=== PATIENT | female | born 1970 | race Caucasian/White ===

== ENCOUNTER 2019-08-17 21:03 | Emergency (ER) | payer MEDICARE ==
[2019-08-17 21:13] VITALS: PULSE 92
[2019-08-17] MEDS ORDERED: MECLIZINE 12.5 MG TAB PO STA (21:30)
[2019-08-17] MEDS ORDERED: SODIUM CHLORIDE 0.9% 1,000 ML IV STA (21:31)
--- NOTE | 2019-08-17 22:17 | CT ---
EXAMINATION TYPE: CT brain wo con DATE OF EXAM: 08/17/2019 COMPARISON: None HISTORY: Dizziness. CT DLP: 1094.4 mGycm Automated exposure control for dose reduction was used. Multiple axial sections were obtained of the brain without contrast. Ventricles have normal size. There is no mass effect nor midline shift. There is no sign of intracran ial hemorrhage. Calvarium is intact. There is no evidence of cerebral edema. IMPRESSION: Normal unenhanced head CT scan.
[2019-08-17 22:50] LABS: Basophils # (A) 0.2 k/uL (0-0.2); Basophils % (A) 2 %; Eosinophils # (A) 0.3 k/uL (0-0.7); Eosinophils % (A) 4 %; HCT 44.6 % (34.0-46.0); Lymphocytes # (A) 2.6 k/uL (1.0-4.8); Lymphocytes % (A) 35 %; MCH 32.2 pg (25.0-35.0); MCHC 35.9 g/dL (31.0-37.0); MCV 89.7 fL (80.0-100.0); Mean Platelet Volume 8.1; Monocytes # (A) 0.4 k/uL (0-1.0); Monocytes % (A) 5 %; Neutrophils # (A) 3.8 k/uL (1.3-7.7); Neutrophils % (A) 52 %; Platelet Count 269 k/uL (150-450); RBC 4.97 m/uL (3.80-5.40); RDW 12.9 % (11.5-15.5); WBC 7.4 k/uL (3.8-10.6)
[2019-08-17 23:07] LABS: ALT 14 U/L (4-34); AST 27 U/L (14-36); African American GFR (CKD) >90 (>60 ml/min/1.73 sqM); Albumin 3.9 g/dL (3.5-5.0); Alkaline Phosphatase 77 U/L (38-126); Anion Gap 4 mmol/L; Blood Urea Nitrogen 16 mg/dL (7-17); Calcium 9.2 mg/dL (8.4-10.2); Carbon Dioxide 30 mmol/L (22-30); Chloride 104 mmol/L (98-107); Glucose 81 mg/dL (74-99); Non-African American GFR(CKD) >90 (>60 ml/min/1.73 sqM); Sodium 138 mmol/L (137-145); Total Bilirubin 0.4 mg/dL (0.2-1.3); Total Protein 7.1 g/dL (6.3-8.2)
[2019-08-17] MEDS ORDERED: AMOXIC-POT CLAV 875MG STARTER 2 EACH TABLET PO STA (23:15)
[2019-08-17] MEDS ORDERED: AMOXIC-POT CLAV 875-125MG 1 EACH TAB PO STA (23:15)
--- NOTE | 2019-08-17 23:17 | ED ---
General Adult HPI - General Chief complaint: Dizziness Stated complaint: lightheaded/dizziness Time Seen by Provider: 08/17/19 21:21 Source: patient, RN notes reviewed, old records reviewed Mode of arrival: ambulatory Limitations: no limitations - History of Present Illness Initial comments: 49-year-old female patient with past history bariatric surgery presents ED for chief complaint of sensation of room spinning about her, as well as some left ear pain. Patient reports that the sensation began laying in bed last night. Course is worse side to side movements. Reports this is causing her some mild waxing and waning headaches. When the sensation of ongoing she's been having nausea without emesis. States that this is at baseline. Denies any red flag symptoms. Denies any other complaints at this time. Systemic: Pt denies fatigue, fever/chills, rash. Pt denies weakness, night sweats, weight loss. Neuro: Pt denies visual disturbances, syncope or pre-syncope. HEENT: Pt denies ocular discharge or irritation, otalgia, rhinorrhea, pharyngitis or notable lymphadenopathy. Cardiopulmonary: Pt denies chest pain, SOB, heart palpitations, dyspnea on exertion. Abdominal/GI: Pt denies abdominal pain, n/v/d. : Pt denies dysuria, burning w/ urination, frequency/urgency. Denies new onset urinary or bowel incontinence. MSK: Pt denies myalgia, loss of strength or function in extremities. Neuro: Pt denies new onset weakness, paresthesias. - Related Data Previous Rx's Medication Instructions Recorded Amoxicillin/Potassium Clav 1 each PO Q12HR 10 Days #20 tab 08/17/19 [Augmentin 875-125 Tablet] Meclizine [Antivert] 25 mg PO Q6H PRN #16 tab 08/17/19 Allergies Allergy/AdvReac Type Severity Reaction Status Date / Time naproxen [From Naprosyn] Allergy Rapid Verified 08/17/19 21:14 Heart Rate Sulfa (Sulfonamide Allergy Rash/Hives Verified 08/17/19 21:14 Antibiotics) Review of Systems ROS Statement: Those systems with pertinent positive or pertinent negative responses have been documented in the HPI. ROS Other: All systems not noted in ROS Statement are negative. Past Medical History Past Medical History: No Reported History History of Any Multi-Drug Resistant Organisms: None Reported Past Surgical History: Bariatric Surgery, Orthopedic Surgery Additional Past Surgical History / Comment(s): ankle ,knee, neck fusion Past Psychological History: Depression Smoking Status: Former smoker Past Alcohol Use History: None Reported Past Drug Use History: None Reported General Exam - General Exam Comments Initial Comments: Constitutional: NAD, AOX3, Pt has pleasant affect. HEENT: NC/AT, trachea midline, neck supple, no lymphadenopathy. Posterior pharynx non erythematous, without exudates. External ears appear normal, without discharge. Mucous membranes moist. Eyes PERRLA, EOM intact. There is no scleral icterus. No pallor noted. Left tympanic membrane erythematous no bulging or perforation. Right tympanic membrane pale linton, no bulging or perforation. Cardiopulmonary: RRR, no murmurs, rubs or gallops, no JVD noted. Lungs CTAB in anterior and posterior pickard. No peripheral edema. Abdominal exam: Abdomen soft and non-distended. Abdomen non-tender to palpation in all 4 quadrants. Bowel sounds active in LLQ. No hepatosplenomegaly. No ecchymosis Neuro: CN II-XII intact. No nuchal rigidity. No raccon eyes, no bashir sign, no hemotympanum. No cervical spinal tenderness. NIH 0. MSK: No posterior calf tenderness bilaterally, homans sign negative bilaterally. Posterior tibialis and radial pulse +2 bilaterally. Sensation intact in upper and lower extremities. Full active ROM in upper and lower extremities, 5/5 stregnth. Limitations: no limitations Course Vital Signs 08/17/19 21:10 Temperature 98.3 F Pulse Rate 92 Respiratory 20 Rate Blood Pressure 153/78 O2 Sat by Pulse 99 Oximetry Medical Decision Making - Medical Decision Making 49-year-old female patient with past history bariatric surgery presents ED for chief complaint of sensation of room spinning about her, as well as some left ear pain. Patient reports that the sensation began laying in bed last night. Course is worse side to side movements. Reports this is causing her some mild waxing and waning headaches. When the sensation of ongoing she's been having nausea without emesis. States that this is at baseline. Denies any red flag symptoms. Denies any other complaints at this time. Patient vital signs are stable, afebrile. Physical exam displayed intact neurologic exam. Patient movements are also intact. Patient does report that symptoms are reproducible [id number] head movements. Physical exam also displayed left otitis media. Discussed with patient this was likely vertigo. Chair decision making discussed imaging intracranially, patient requested to have this performed. Laboratory investigations were performed, CBC, CMP unremarkable. CT brain without contrast display acute process. EKG is nonischemic. Patient was administered one dose of Antivert, is asymptomatic at this time. Patient discharged with Antivert and Augmentin for otitis media. Patient will follow-up with primary care provider, will return to ER if condition worsens. Case discussed with Dr. Monet. - Lab Data Result diagrams: 08/17/19 22:26 08/17/19 22:26 Lab Results 08/17/19 08/17/19 Range/Units 22:26 22:26 WBC 7.4 (3.8-10.6) k/uL RBC 4.97 (3.80-5.40) m/uL Hgb 16.0 (11.4-16.0) gm/dL Hct 44.6 (34.0-46.0) % MCV 89.7 (80.0-100.0) fL MCH 32.2 (25.0-35.0) pg MCHC 35.9 (31.0-37.0) g/dL RDW 12.9 (11.5-15.5) % Plt Count 269 (150-450) k/uL Neutrophils % 52 % Lymphocytes % 35 % Monocytes % 5 % Eosinophils % 4 % Basophils % 2 % Neutrophils # 3.8 (1.3-7.7) k/uL Lymphocytes # 2.6 (1.0-4.8) k/uL Monocytes # 0.4 (0-1.0) k/uL Eosinophils # 0.3 (0-0.7) k/uL Basophils # 0.2 (0-0.2) k/uL Sodium 138 (137-145) mmol/L Potassium 4.0 (3.5-5.1) mmol/L Chloride 104 (98-107) mmol/L Carbon Dioxide 30 (22-30) mmol/L Anion Gap 4 mmol/L BUN 16 (7-17) mg/dL Creatinine 0.74 (0.52-1.04) mg/dL Est GFR (CKD-EPI)AfAm >90 (>60 ml/min/1.73 sqM) Est GFR (CKD-EPI)NonAf >90 (>60 ml/min/1.73 sqM) Glucose 81 (74-99) mg/dL Calcium 9.2 (8.4-10.2) mg/dL Total Bilirubin 0.4 (0.2-1.3) mg/dL AST 27 (14-36) U/L ALT 14 (4-34) U/L Alkaline Phosphatase 77 (38-126) U/L Total Protein 7.1 (6.3-8.2) g/dL Albumin 3.9 (3.5-5.0) g/dL - EKG Data -: EKG Interpreted by Me (and Dr. Monet) EKG Comments: Ventricular rate 72, NE interval 1:30, QRS 98, QT/QTC 414/453. Normal sensory rhythm, normal EKG, no concern for acute ischemia. Disposition Clinical Impression: Otitis media, Vertigo Disposition: HOME SELF-CARE Condition: Stable Instructions (If sedation given, give patient instructions): Vertigo (ED), Ear Infection (ED) Additional Instructions: Take antibiotics as directed. Use Antivert only as needed for vertigo symptoms. Follow-up with primary care provider tomorrow. Return immediately to ER if condition worsens in any way. Prescriptions: Meclizine [Antivert] 25 mg PO Q6H PRN #16 tab PRN Reason: Dizziness Amoxicillin/Potassium Clav [Augmentin 875-125 Tablet] 1 each PO Q12HR 10 Days #20 tab Is patient prescribed a controlled substance at d/c from ED?: No Referrals: Alfonso Gil DO [Primary Care Provider] - 1-2 days
[2019-08-17 23:33] VITALS: BP 146/78; RESP 18; TEMP 98
== END 2019-08-17 23:32 | disposition home or self-care (01) ==
LOC: EC 21:03
DX: H66.92 Otitis media, unspecified, left ear (principal); R42 Dizziness and giddiness; Z87.891 Personal history of nicotine dependence; Z88.6 Allergy status to analgesic agent; Z88.2 Allergy status to sulfonamides
CPT/HCPCS: 36415; 70450; 80053; 85025; 93005; 96360; 99285

== ENCOUNTER → 2020-02-14 | Outpatient (CLI) | payer MEDICARE ==
[2020-02-14 13:13] VITALS: BP 129/85; PULSE 76; TEMP 98.7; BMI 37.5
--- NOTE | 2020-02-14 20:06 | PN ---
PROGRESS NOTE DATE OF SERVICE: 02/14/2020 CHIEF COMPLAINT: Morbid obesity. INTERVAL HISTORY: The patient returns for followup. She was not seen at [facility]. Previously she was at [facility]. She has done well since her last visit, however. She was last seen July 2018. Since that time she has lost 30 pounds. Initial weight of 386, currently at 219. Denies reflux. Only takes antacids on an as-needed basis. The patient is complaining of mild rash underneath her pannus. Interested in plastic surgery evaluation. PHYSICAL EXAMINATION: ABDOMEN: Soft, nontender, nondistended. Mild excoriation beneath folds. PLAN: Will check annual labs at this time. Will make referral to Plastic Surgery for evaluation. Followup one year. MMODL / IJN: [id number] /
== END | disposition home or self-care (01) ==
LOC: BARWHC3 12:54
PROVIDERS: ATTEND Surgery
DX: Z48.815 Encounter for surgical aftercare following surgery on the digestive system (principal); Z98.84 Bariatric surgery status; E66.01 Morbid (severe) obesity due to excess calories; Z68.36 Body mass index [BMI] 36.0-36.9, adult
CPT/HCPCS: 99211

== ENCOUNTER → 2020-02-28 | Outpatient (CLI) | payer MEDICARE ==
[2020-02-28 11:13] LABS: HCT 43.7 % (34.0-46.0); HGB 14.1 gm/dL (11.4-16.0); MCH 29.2 pg (25.0-35.0); MCHC 32.2 g/dL (31.0-37.0); MCV 90.6 fL (80.0-100.0); Mean Platelet Volume 8.3; Platelet Count 265 k/uL (150-450); RBC 4.82 m/uL (3.80-5.40); RDW 12.2 % (11.5-15.5); WBC 5.6 k/uL (3.8-10.6)
[2020-02-28 11:25] LABS: Potassium 4.5 mmol/L (3.5-5.1)
[2020-02-28 11:26] LABS: ALT 14 U/L (4-34); AST 25 U/L (14-36); African American GFR (CKD) >90 (>60 ml/min/1.73 sqM); Albumin 3.9 g/dL (3.5-5.0); Alkaline Phosphatase 72 U/L (38-126); Anion Gap 6 mmol/L; Blood Urea Nitrogen 19 mg/dL (7-17); Calcium 9.1 mg/dL (8.4-10.2); Carbon Dioxide 28 mmol/L (22-30); Chloride 105 mmol/L (98-107); Cholesterol 180 mg/dL (<200); Glucose 87 mg/dL (74-99); HDL Cholesterol 32 mg/dL (40-60); LDL Cholesterol,Calculated 135 mg/dL (0-99); Non-African American GFR(CKD) >90 (>60 ml/min/1.73 sqM); Sodium 139 mmol/L (137-145); Total Bilirubin 0.8 mg/dL (0.2-1.3); Total Protein 6.9 g/dL (6.3-8.2); Triglycerides 66 mg/dL (<150)
[2020-02-28 18:58] LABS: Iron 163 ug/dL (50-170)
[2020-02-28 19:43] LABS: Folate, Serum 23.7 ng/mL
--- NOTE | 2020-03-05 10:54 | MM ---
Reason for exam: screening (asymptomatic). Last mammogram was performed 4 years and 3 months ago. History: Patient is nulliparous. Took hormonal contraceptives for 1 year beginning at age 22. Physical Findings: A clinical breast exam by your physician is recommended on an annual basis and results should be correlated with mammographic findings. MG Screening Mammo w CAD Bilateral CC and MLO view(s) were taken. Prior study comparison: November 19, 2015, mammogram. There are scattered fibroglandular densities. No significant changes when compared with prior studies. ASSESSMENT: Benign, BI-RAD 2 RECOMMENDATION: Routine screening mammogram of both breasts in 1 year.
== END | disposition home or self-care (01) ==
LOC: RADMAMWWP 10:25
PROVIDERS: ATTEND Family Medicine
DX: Z12.31 Encounter for screening mammogram for malignant neoplasm of breast (principal); E66.09 Other obesity due to excess calories; K90.89 Other intestinal malabsorption; E55.9 Vitamin D deficiency, unspecified
CPT/HCPCS: 36415; 77067; 80053; 80061; 82306; 82607; 82746; 83540; 84425; 85027

== ENCOUNTER → 2020-03-26 | Outpatient (CLI) | payer MEDICARE | END | disposition home or self-care (01) | LOC: LABWHC1 10:59 | PROVIDERS: ATTEND Family Medicine | DX: Z20.828 Contact with and (suspected) exposure to other viral communicable diseases (principal) | CPT/HCPCS: U0003; C9803 ==

== ENCOUNTER → 2020-06-20 | Outpatient (CLI) | payer MEDICARE | END | disposition home or self-care (01) | LOC: LABWHC1 16:11 | PROVIDERS: ATTEND Family Medicine | DX: Z20.828 Contact with and (suspected) exposure to other viral communicable diseases (principal) | CPT/HCPCS: U0003; C9803 ==

== ENCOUNTER 2022-02-18 09:19 | Day surgery (SDC) | payer MEDICARE ==
[2022-02-17 09:16] VITALS: BMI 44.6
[~2022-02-18 09:19] MED LIST: LACTATED RINGERS 1,000 ML IV SCH; LIDOCAINE 1% (10MG/ML) FOR IV START INTRADERMA PRN
[2022-02-18 10:16] VITALS: TEMP 97.8
[2022-02-18] MEDS ORDERED: PROPOFOL 10 MG/ML 20 ML VIAL IV ONE (10:42)
--- NOTE | 2022-02-18 10:47 | P.GSHP ---
History of Present Illness H&P Date: 02/18/22 Chief Complaint: Colon cancer screening 52-year-old female here today for colonoscopy. She had one many years ago that was normal. No family history of colon cancer. History of chronic constipation. No change in bowel habits. Past Medical History Past Medical History: Asthma, GERD/Reflux, Hyperlipidemia, Hypertension History of Any Multi-Drug Resistant Organisms: None Reported Past Surgical History: Bariatric Surgery, Orthopedic Surgery Additional Past Surgical History / Comment(s): BILAT KNEE SX, RT ANKLE AND BUNIONECTOMY, neck fusion, sleeve gastrectomy 2017 [facility], COLONOSCOPY Past Anesthesia/Blood Transfusion Reactions: No Reported Reaction Smoking Status: Former smoker - Past Family History Mother Family Medical History: Cancer Sister(s) Family Medical History: Cancer Medications and Allergies Home Medications Medication Instructions Recorded Confirmed Type Ascorbic Acid [Vitamin C] 1,000 mg PO DAILY 02/17/22 02/18/22 History Budesonide-Formot 160-4.5 Mcg 2 puff INHALATION BID 02/17/22 02/18/22 History [Symbicort 160-4.5 Mcg Inhaler] Calcium Citrate/Vitamin D3 1 each PO BID 02/17/22 02/18/22 History [Citracal + D Maximum Caplet] Cholecalciferol [Vitamin D3 (125 125 mcg PO DAILY 02/17/22 02/18/22 History Mcg = 5000 Iu)] Cranberry Fruit Extract [Cranberry] 500 mg PO DAILY 02/17/22 02/18/22 History Cyanocobalamin (Vitamin B-12) 5,000 mcg PO DAILY 02/17/22 02/18/22 History [Vitamin B-12] Cyclobenzaprine [Flexeril] 10 mg PO HS 02/17/22 02/18/22 History Diclofenac Sodium [Voltaren] 75 mg PO BID 02/17/22 02/18/22 History Docusate [Colace] 100 mg PO DAILY 02/17/22 02/18/22 History EPINEPHrine (Auto Inject) [Epipen] 0.3 mg IM ONCE PRN 02/17/22 02/18/22 History Fexofenadine/Pseudoephedrine 1 tab PO BID 02/17/22 02/18/22 History [Ana-D 12 Hour Tablet] Fish Oil/Dha/Epa [Fish Oil 1,200 1 each PO DAILY 02/17/22 02/18/22 History mg Fish Oil] Fluticasone Nasal [place] [Flonase 1 spray NASAL DAILY 02/17/22 02/18/22 History Nasal [place]] Linaclotide [Linzess] 145 mcg PO DAILY 02/17/22 02/18/22 History Montelukast [Singulair] 10 mg PO DAILY 02/17/22 02/18/22 History Multivit with Calcium,Iron,Min 1 each PO DAILY 02/17/22 02/18/22 History [Women's Multivitamin] Austin-3 Fatty Acids [Austin-3] 2,000 mg PO BID 02/17/22 02/18/22 History Omeprazole 20 mg PO DAILY 02/17/22 02/18/22 History Simvastatin [Zocor] 20 mg PO HS 02/17/22 02/18/22 History Vitamin E (Dl,Tocopheryl Acet) 45 mg PO DAILY 02/17/22 02/18/22 History [Vitamin E (100 Iu = 45MG)] Zinc 50 mg PO DAILY 02/17/22 02/18/22 History lisinopriL [Zestril] 2.5 mg PO DAILY 02/17/22 02/18/22 History rOPINIRole HCL [Requip] 0.5 mg PO HS 02/17/22 02/18/22 History traMADol HCL 50 mg PO DAILY 02/17/22 02/18/22 History Allergies Allergy/AdvReac Type Severity Reaction Status Date / Time adhesive Allergy BLISTERS Verified 02/18/22 10:17 naproxen [From Naprosyn] Allergy Rapid Verified 02/18/22 10:17 Heart Rate Sulfa (Sulfonamide Allergy Rash/Hives Verified 02/18/22 10:17 Antibiotics) Surgical - Exam Vital Signs Temp Pulse Resp BP Pulse Ox 97.8 F 83 18 130/80 94 L 02/18/22 10:15 02/18/22 10:15 02/18/22 10:15 02/18/22 10:15 02/18/22 10:15 Physical exam: General: Well-developed, well-nourished HEENT: Normocephalic, sclerae nonicteric Abdomen: Nontender, nondistended Extremities: No edema Neuro: Alert and oriented Assessment and Plan (1) Colon cancer screening Narrative/Plan: Will proceed with colonoscopy Current Visit: Yes Status: Acute Code(s): Z12.11 - ENCOUNTER FOR SCREENING FOR MALIGNANT NEOPLASM OF COLON SNOMED Code(s): 241222201
--- NOTE | 2022-02-18 11:05 | P.PCN ---
Date of Procedure: 02/18/22 Procedure(s) Performed: PREOPERATIVE DIAGNOSIS: Colon cancer screening POSTOPERATIVE DIAGNOSIS: Normal exam PROCEDURE: Colonoscopy ANESTHESIA: MAC SURGEON: Brando Phillips M.D. SPECIMENS: ENDOSCOPIC PROCEDURE: The patient was placed on the endoscopy table in the left decubitus position. The Olympus colonoscope was inserted into the anus and passed under direct visualization to the base of the cecum. The appendiceal orifice was visualized. From that point the scope was slowly withdrawn inspecting all surfaces carefully. There were no neoplastic inflammatory or polypoid lesions throughout the cecum, ascending, transverse, descending, sigmoid and rectum. There wano visible diverticulosis noted. Digital rectal examination was normal. The patient was taken to the recovery room in stable condition per anesthesia guidelines. RECOMMENDATIONS: resume diet. Repeat colonoscopy 10 years.
[2022-02-18 11:10] VITALS: RESP 16
[2022-02-18 12:16] VITALS: BP 116/79; PULSE 85
== END 2022-02-18 12:15 | disposition home or self-care (01) ==
LOC: ORWHC2ENDO 09:19
PROVIDERS: ATTEND Surgery
DX: Z12.11 Encounter for screening for malignant neoplasm of colon (principal); K57.30 Diverticulosis of large intestine without perforation or abscess without bleeding; J45.909 Unspecified asthma, uncomplicated; K21.9 Gastro-esophageal reflux disease without esophagitis; E78.5 Hyperlipidemia, unspecified; I10 Essential (primary) hypertension; Z98.84 Bariatric surgery status; Z98.890 Other specified postprocedural states; Z98.1 Arthrodesis status; E66.9 Obesity, unspecified; Z68.41 Body mass index [BMI] 40.0-44.9, adult; Z87.891 Personal history of nicotine dependence; Z80.9 Family history of malignant neoplasm, unspecified; Z79.51 Long term (current) use of inhaled steroids; Z79.891 Long term (current) use of opiate analgesic; Z79.899 Other long term (current) drug therapy; Z88.2 Allergy status to sulfonamides; Z88.8 Allergy status to other drugs, medicaments and biological substances; Z91.09 Other allergy status, other than to drugs and biological substances
CPT/HCPCS: 81025; 45378; J2704

== ENCOUNTER → 2022-05-08 | Outpatient (CLI) | payer MEDICARE ==
--- NOTE | 2022-05-09 16:09 | MM ---
Reason for Exam: Screening (asymptomatic). Last mammogram was performed 2 year(s) and 2 month(s) ago. Patient History: Menarche at age 15. Patient has no children. Postmenopausal. Hormonal Contraceptives, starting at age 22 for 1 year. Risk Values: Rubi 5 year model risk: 1.1%. NCI Lifetime model risk: 9.9%. Prior Study Comparison: 04/22/2012 Bilateral Screening Mammogram, [facility]. 11/19/2015 Screening Mammogram, Unknown. 02/28/2020 Bilateral Screening Mammogram, [facility]. Tissue Density: The breast tissue is almost entirely fat. Findings: Analyzed By CAD. There is no suspicious group of microcalcifications or new suspicious mass in either breast. Overall Assessment: Negative, BI-RAD 1 Management: Screening Mammogram of both breasts in 1 year. 1. Patient should continue monthly self breast exams. 2. A clinical breast exam by your physician is recommended on an annual basis. 3. This exam should not preclude additional follow-up of suspicious palpable abnormalities. Electronically signed and approved by: Precious Muller M.D. Radiologist
== END | disposition home or self-care (01) ==
LOC: RADMAMWWP 16:57
PROVIDERS: ATTEND Family Medicine
DX: Z12.31 Encounter for screening mammogram for malignant neoplasm of breast (principal); Z78.0 Asymptomatic menopausal state
CPT/HCPCS: 77063; 77067

== ENCOUNTER → 2023-12-22 | Outpatient (CLI) | payer MEDICARE ==
--- NOTE | 2023-12-27 14:00 | CT ---
EXAMINATION TYPE: CT sinus wo con DATE OF EXAM: 12/22/2023 COMPARISON: 05/27/2011 HISTORY: sinusitis CT DLP: 673.2 mGycm CONTRAST: 0 mL of Isovue 300 The paranasal sinuses are examined in the axial plane at 2 mm thick sections. Reconstructed images i n the coronal plane were obtained. There is dental amalgam scatter artifact Mucosal thickening is within the left maxillary sinus. There is mucosal thickening with an air-fluid level in the right maxillary sinus. Correlate for acute right maxillary sinusitis. The ethmoid air c ells are clear. There is some mild mucosal thickening and/or fluid within the left sphenoid sinus. The frontal sinuses are clear. Portion of the mastoid air cells visualized are clear. The septum is evaluated. There is septal deviation to the right. Bilateral kaitlin bullosa are presen t. The ostiomeatal units are obstructed bilaterally IMPRESSION: 1. Clinical correlation recommended for acute right maxillary sinusitis. Some milder left sphenoid s inusitis may be present. 2. Obstructed bilateral ostiomeatal units.
== END | disposition home or self-care (01) ==
LOC: RADCTMAIN 12:25
PROVIDERS: ATTEND Internal Medicine
DX: J32.9 Chronic sinusitis, unspecified (principal)
CPT/HCPCS: 70486

== ENCOUNTER 2024-02-17 08:57 | Day surgery (SDC) | payer MEDICARE ==
[2024-02-16 10:47] VITALS: BMI 44.6
[~2024-02-17 08:57] MED LIST changes: -LACTATED RINGERS 1,000 ML IV SCH; +MIDAZOLAM 2 MG/2 ML VIAL IV PRN
[2024-02-17] MEDS: IV FLUID CONTINUATION 1,000 ML IV ONE (09:07)
[2024-02-17] MEDS: DEXAMETHASONE SOD PHOSPHATE 4 MG/ML 1 ML VIAL IV ONE (09:49)
[2024-02-17] MEDS: LACTATED RINGERS 1,000 ML IV SCH (09:49)
[2024-02-17] MEDS: ONDANSETRON 4 MG/2 ML VIAL IVP ONE (09:49)
[2024-02-17] MEDS: OXYMETAZOLINE 0.05% NASL SPRAY 1 SPRAY BOTTLE EA NOSTRIL PRN (09:50)
[2024-02-17] MEDS: FAMOTIDINE 20 MG/2 ML VIAL IV PRN (10:16)
[2024-02-17] MEDS ORDERED: SUCCINYLCHOLINE CHLORIDE 200 MG/10 ML VIAL IV ONE (10:35)
[2024-02-17] MEDS ORDERED: fentaNYL (PF) 50 MCG/ML 2 ML AMP ONE (10:35)
[2024-02-17] MEDS ORDERED: PROPOFOL 10 MG/ML 20 ML VIAL IV ONE (10:35)
[2024-02-17] MEDS ORDERED: PHENYLEPHRINE 10 MG/ML VIAL ONE (10:35)
[2024-02-17] MEDS ORDERED: LIDOCAINE 1% INJ 10MG/ML (20 ML MDV) ONE (10:35)
[2024-02-17] MEDS ORDERED: DEXAMETHASONE SOD PHOSPHATE 10 MG/ML 1 ML VIAL ONE (10:35)
[2024-02-17] MEDS ORDERED: MIDAZOLAM 2 MG/2 ML VIAL ONE (10:35)
[2024-02-17] MEDS: LIDOCAINE 1%-EPI 1:100,000 20 ML VIAL SUBMUCOSAL ONE ×2 (10:59)
--- NOTE | 2024-02-17 11:42 | P.OP ---
Date of Procedure: 02/17/24 Preoperative Diagnosis: deviated nasal septum Inferior turbinate hypertrophy Chronic sinusitis Postoperative Diagnosis: same Procedure(s) Performed: septoplasty Outfractured and submucous resection inferior turbinates Bilateral endoscopic sinus surgery including bilateral maxillary antrostomy with removal of tissue from maxillary sinuses, bilateral partial anterior ethmoidectomy left sphenoidotomy with removal of tissue from the sphenoid sinus Anesthesia: EMILIE Surgeon: Osman Vila Estimated Blood Loss (ml): 10 Pathology: other (nasal septal bone and cartilage and sinus contents) Condition: stable Disposition: PACU Indications for Procedure: this is a 54-year-old white female with difficulties with chronic nasal airway obstruction congestion and nasal airway obstruction and recurrent/chronic sinusitis with evidence of chronic sinusitis both symptomatically and on CT Operative Findings: nasal septum deviated to the right in the cartilaginous and bony septum, inferior turbinate hypertrophy bilateral. Ostia of the maxillary sinuses were obstructed bilaterally with small polyps in the maxillary sinuses. The ethmoid bulla were overhanging bilaterally and therefore these were opened also thus performing a partial anterior ethmoidectomy, the sphenoid ostium on the left was obstructed also with mucosal thickening+ in the left sphenoid sinus. Description of Procedure: The patient was brought into the operative suite and placed in a supine position. The patient underwent induction of general anesthesia with oral endotracheal intubation without difficulty. The patient was prepped and draped in the usual aseptic fashion with the orbits in the operating field for monitoring to the case and the computed tomography scan was on the computer screen for review throughout the case. 1% lidocaine with 1 :100,000 epinephrine was infused submucosally into both sides of the nasal septum as well as the lateral nasal wall and anterior tips of the middle turbinates. While this was taking vasoconstrictive effect the inferior turbinates were infractured with [place] elevator and partial submucous resection of the inferior turbinates was performed with a portion of the submucosal soft tissue and the inferior turbinate bone removed with Coblation device. The inferior turbinates were then outfractured with the [place] elevator. A left hemitransfixion incision was then made with the mucoperichondrial and mucoperiosteal flap on the left elevated. The bony cartilaginous junction was disarticulated and the mucoperiosteal flap on the right was elevated. Bony nasal septal deformities were removed with Aimee forceps and an inferior cartilaginous strip was removed leaving a full 1.5 cm caudal strut. Checking intranasally this corrected the nasoseptal deformities and the hemitransfixion incision was closed with a running 4-0 chromic suture. Full 0 endoscopic examination is performed bilaterally. Beginning on the left, the middle turbinate was medialized. The maxillary ostium was located with a ballpoint probe and an infundibulotomy was performed followed by uncinectomy. The maxillary antrostomy was enlarged at the expense of the anterior and posterior fontanelle taking care anteriorly not to injure the lacrimal bone. The maxillary sinus was evaluated with 30 and 70 endoscope .[Abnormal appearing tissue was removed from the maxillary sinus]. Anterior ethmoidectomy was performed/ethmoid bullectomy as this was overhanging the middle meatus The roof of the anterior ethmoid air cells were then cleaned from posterior to anterior using up-biting Blakesley forceps. the left sphenoid sinus was opened under 0 endoscopic examination including exploration of the sinus. There was mucosal thickening that was removed with straight Blakesley forceps. The sphenoid sinus was then explored with 0 endoscope.[Abnormal tissue was removed from the sphenoid sinus]. Attention was then turned to the right where the procedures were followed as they had been on the left including right maxillary antrostomy with removal of tissue from the maxillary sinus and partial anterior ethmoidectomy [Nasopore nasal dressing was placed in the middle meatus bilaterally under direct visualization]. Bilateral Lopez airway splints coated with bacitracin ointment were placed and sutured transseptally with a 4-0 nylon suture. The patient was suctioned in oral gastric fashion and was allowed to emerge from general anesthesia having tolerated procedure well and was extubated in the operating suite and transferred to the postoperative recovery area in satisfactory condition.
[2024-02-17 11:52] VITALS: TEMP 97.2
[2024-02-17] MEDS: HYDROmorphone 0.5 MG/0.5 ML SYRINGE IVP PRN (12:20)
[2024-02-17 13:17] VITALS: RESP 18
[2024-02-17 13:36] VITALS: BP 154/90; PULSE 92
== END 2024-02-17 14:05 | disposition home or self-care (01) ==
LOC: OR 08:57
PROVIDERS: ATTEND Otolaryngology
DX: J34.2 Deviated nasal septum (principal); J34.3 Hypertrophy of nasal turbinates; J32.3 Chronic sphenoidal sinusitis; D72.10 Eosinophilia, unspecified; E78.5 Hyperlipidemia, unspecified; I11.9 Hypertensive heart disease without heart failure; K21.9 Gastro-esophageal reflux disease without esophagitis; J45.909 Unspecified asthma, uncomplicated; G47.30 Sleep apnea, unspecified; E66.9 Obesity, unspecified; Z68.42 Body mass index [BMI] 45.0-49.9, adult; I25.10 Atherosclerotic heart disease of native coronary artery without angina pectoris; Z88.2 Allergy status to sulfonamides; Z88.6 Allergy status to analgesic agent; Z91.09 Other allergy status, other than to drugs and biological substances; Z87.891 Personal history of nicotine dependence; Z79.51 Long term (current) use of inhaled steroids; Z79.899 Other long term (current) drug therapy
CPT/HCPCS: 88305; 88300; 30520; 30140; 31254; 31267; 31288; J2250; J0330; J1100 ×2; J0690; J2405; J2001; J3010; J3490; J2704; J1170; J2371

== ENCOUNTER → 2024-06-21 | Outpatient (CLI) | payer MEDICARE ==
--- NOTE | 2024-06-22 07:41 | MM ---
Reason for Exam: Screening (asymptomatic). Last mammogram was performed 2 year(s) and 1 month(s) ago. Patient History: Menarche at age 15. Patient has no children. Postmenopausal. Hormonal Contraceptives, starting at age 22 for 1 year. Risk Values: Rubi 5 year model risk: 1.2%. NCI Lifetime model risk: 9.6%. Prior Study Comparison: 11/19/2015 Screening Mammogram, Unknown. 02/28/2020 Bilateral Screening Mammogram, [facility]. 05/08/2022 Bilateral MG 3D screening mammo w/cad, [facility]. Tissue Density: There are scattered areas of fibroglandular density. Findings: Analyzed By CAD. There is no suspicious group of microcalcifications or new suspicious mass in either breast. Benign calcifications. Overall Assessment: Benign, BI-RAD 2 Management: Screening Mammogram of both breasts in 1 year. . Patient should continue monthly self-breast exams. A clinical breast exam by your physician is recommended on an annual basis. This exam should not preclude additional follow-up of suspicious palpable abnormalities. Note on Rubi scores and lifetime risk: 1. A Rubi score greater than 3% is considered moderate risk. If this is the case, consider specialist referral to assess eligibility for a risk reducing agent. 2. If overall lifetime risk for the development of breast cancer is 20% or higher, the patient may qualify for future screening with alternating mammogram and breast MRI. [facility], , 06/22/2024 7:37 AM. Electronically signed and approved by: Joseph Silverman M.D. Radiologis
== END | disposition home or self-care (01) ==
LOC: RADMAMWWP 13:40
PROVIDERS: ATTEND Family Medicine
DX: Z12.31 Encounter for screening mammogram for malignant neoplasm of breast (principal); R92.323 Mammographic fibroglandular density, bilateral breasts; Z78.0 Asymptomatic menopausal state
CPT/HCPCS: 77063; 77067